=== PATIENT | male | born 1935 | race Caucasian/White ===

== ENCOUNTER 2017-08-03 19:24 | Outpatient (CLI) | payer MEDICARE, OTHER | END 2017-08-04 05:29 | disposition home or self-care (01) | LOC: SLEEP 19:24 | PROVIDERS: ATTEND Nurse Practitioner | DX: G47.33 Obstructive sleep apnea (adult) (pediatric) (principal); G47.10 Hypersomnia, unspecified; R06.83 Snoring | CPT/HCPCS: 95810 ==

== ENCOUNTER 2019-01-21 05:48 | Outpatient (CLI) | payer MEDICARE ==
[~2019-01-21] VITALS: Ht 177.8 cm; Wt 74.8 kg
[2019-01-21] MEDS ORDERED: [UNRECOGNIZED DRUG - CODE] PO (11:04)
[2019-01-21] MEDS ORDERED: SIMV20TA3 PO (11:04)
[2019-01-21] MEDS ORDERED: ZOLP10TA5 PO (11:04)
[2019-01-21] MEDS ORDERED: ASPI-586 PO (11:04)
[2019-01-21] MEDS ORDERED: MELA10CA2 PO (11:04)
[2019-01-21] MEDS ORDERED: LOSA1TAB26 PO (11:04)
[2019-01-21] MEDS ORDERED: ISRA2.5C PO (11:04)
[2019-01-21] MEDS ORDERED: MULT-178 PO (11:04)
== END 2019-01-22 15:03 | disposition home or self-care (01) ==
LOC: PREOP 05:48
PROVIDERS: ATTEND Specialist
DX: Z01.818 Encounter for other preprocedural examination (principal)

== ENCOUNTER 2019-01-23 07:02 | Day surgery (SDC) | payer MEDICARE, OTHER ==
[~2019-01-23] VITALS: Ht 177.8 cm; Wt 74.8 kg
[~2019-01-23 07:02] MED LIST: ASPI-586 PO; ISRA2.5C PO; LOSA1TAB26 PO; MELA10CA2 PO; MULT-178 PO; SIMV20TA3 PO; ZOLP10TA5 PO; [UNRECOGNIZED DRUG - CODE] PO
[2019-01-23 07:15] VITALS: BP 141/83
[2019-01-23] MEDS ORDERED: MOXIFLOXACIN OPHTH SOLN 5 MG/ML 0.3 ML SYRINGE OP ONE (07:15)
[2019-01-23] MEDS ORDERED: LIDOCAINE PF 1% 2 ML AMP IR PRN (07:15)
[2019-01-23] MEDS ORDERED: TIMOLOL MALEATE 0.5% 5 ML (TIMOPTIC) BTL OU PRN (07:15)
[2019-01-23] MEDS ORDERED: POVIDONE (BETADINE) OPHTH SOLN 5% 30 ML OP ONE (07:15)
[2019-01-23] MEDS: TETRACAINE 0.5% OPHTH SOLN 4 ML BTL (SINGLE DOSE ONLY) OU PRN ×4 (07:16→07:34)
[2019-01-23] MEDS: PHENYLEPHRINE 10% OPHTH (NEO-SYN) 5 ML BTL OU SCH ×3 (07:24→07:34)
[2019-01-23] MEDS: CYCLOPENTOLATE 1% (CYCLOGYL) 2 ML DROPS OP SCH ×3 (07:24→07:34)
[2019-01-23] MEDS ORDERED: MIDAZOLAM 2 MG/2 ML (VERSED) VIAL ONE (08:01)
--- NOTE | 2019-01-23 08:21 | Ophthalmologist Pre-Op Note ---
Pre-Operative Progress Note H&P Reviewed The H&P was reviewed, patient examined and no changes noted. Date H&P Reviewed: Jan 23, 2019 Time H&P Reviewed: 08:20 Pre-Op Dx Cataract, Left Eye BJ HARMON MD Jan 23, 2019 08:20
--- NOTE | 2019-01-23 08:41 | Ophthalmology Operative Report ---
Cataract removal/placement IOL PREOPERATIVE DIAGNOSIS: Cataract Left Eye POSTOPERATIVE DIAGNOSIS: Cataract Left Eye PROCEDURE: Cataract removal and placement of posterior chamber implant, left eye SURGEON: Vignesh Harmon ANESTHESIA: Topical with sedation COMPLICATIONS: None ESTIMATED BLOOD LOSS: Minimal DESCRIPTION OF PROCEDURE: After proper informed consent was obtained, the patient, a 83 male, was taken to the Operating Room and the left eye was anesthetized with tetracaine. The left eye was then prepped and draped in the usual manner. A wire lid speculum was placed. A paracentesis was made at the left hand position. Preservative free lidocaine was injected into the anterior chamber followed by viscoelastic. A clear corneal incision was made in the temporal position. A capsulorrhexis was preformed and the central nuclear and cortical material were removed. The posterior capsule was polished and an Angel 22.5 AU00T0 was placed into the capsular bag. The residual viscoelastic was aspirated and balanced saline solution was injected into the anterior chamber. Moxifloxacin was injected into the anterior chamber. The wound was checked and found to be water tight. The patient tolerated the procedure well without complications. VIGNESH HARMON MD Jan 23, 2019 08:41
[2019-01-23 08:53] VITALS: BP 154/91
[2019-01-23] MEDS ORDERED: acetaZOLAMIDE ER 500 MG CAP (DIAMOX SEQUELS) PO ONE (09:00)
== END 2019-01-23 08:53 | disposition home or self-care (01) ==
LOC: SDC 07:02
PROVIDERS: ATTEND Specialist
DX: H25.12 Age-related nuclear cataract, left eye (principal); I10 Essential (primary) hypertension; E78.00 Pure hypercholesterolemia, unspecified; Z79.82 Long term (current) use of aspirin; Z79.899 Other long term (current) drug therapy

== ENCOUNTER 2019-02-04 05:50 | Outpatient (CLI) | payer MEDICARE, OTHER | END 2019-02-04 11:04 | disposition home or self-care (01) | LOC: PREOP 05:50 | PROVIDERS: ATTEND Specialist | DX: Z01.818 Encounter for other preprocedural examination (principal) ==

== ENCOUNTER 2019-02-06 07:05 | Day surgery (SDC) | payer MEDICARE, OTHER ==
[~2019-02-06] VITALS: Ht 177.8 cm; Wt 74.8 kg
[2019-02-06] MEDS ORDERED: POVIDONE (BETADINE) OPHTH SOLN 5% 30 ML OP ONE (07:15)
[2019-02-06] MEDS ORDERED: MOXIFLOXACIN OPHTH SOLN 5 MG/ML 0.3 ML SYRINGE OP ONE (07:15)
[2019-02-06] MEDS ORDERED: LIDOCAINE PF 1% 2 ML AMP IR PRN (07:15)
[2019-02-06] MEDS ORDERED: TIMOLOL MALEATE 0.5% 5 ML (TIMOPTIC) BTL OU PRN (07:15)
[2019-02-06 07:17] VITALS: BP 133/78
[2019-02-06] MEDS: TETRACAINE 0.5% OPHTH SOLN 4 ML BTL (SINGLE DOSE ONLY) OU PRN ×4 (07:19→07:42)
[2019-02-06] MEDS: CYCLOPENTOLATE 1% (CYCLOGYL) 2 ML DROPS OP SCH ×3 (07:27→07:42)
[2019-02-06] MEDS: PHENYLEPHRINE 10% OPHTH (NEO-SYN) 5 ML BTL OU SCH ×3 (07:27→07:42)
[2019-02-06] MEDS ORDERED: MIDAZOLAM 2 MG/2 ML (VERSED) VIAL ONE (07:53)
--- NOTE | 2019-02-06 08:16 | Ophthalmologist Pre-Op Note ---
Pre-Operative Progress Note H&P Reviewed The H&P was reviewed, patient examined and no changes noted. Date H&P Reviewed: Feb 06, 2019 Time H&P Reviewed: 08:15 Pre-Op Dx Cataract, Right Eye BJ HARMON MD Feb 06, 2019 08:15
--- NOTE | 2019-02-06 08:37 | Ophthalmology Operative Report ---
Cataract removal/placement IOL PREOPERATIVE DIAGNOSIS: Cataract Right Eye POSTOPERATIVE DIAGNOSIS: Cataract Right Eye PROCEDURE: Cataract removal and placement of posterior chamber implant, right eye SURGEON: Vignesh Harmon ANESTHESIA: Topical with sedation COMPLICATIONS: None ESTIMATED BLOOD LOSS: Minimal DESCRIPTION OF PROCEDURE: After proper informed consent was obtained, the patient, a 83 male, was taken to the Operating Room and the right eye was anesthetized with tetracaine. The right eye was then prepped and draped in the usual manner. A wire lid speculum was placed. A paracentesis was made at the left hand position. Preservative free lidocaine was injected into the anterior chamber followed by viscoelastic. A clear corneal incision was made in the temporal position. A capsulorrhexis was preformed and the central nuclear and cortical material were removed. The posterior capsule was polished and Angel AU00T0 21.5 IOL was placed into the capsular bag. The residual viscoelastic was aspirated and balanced saline solution was injected into the anterior chamber. Moxifloxacin was injected into the anterior chamber. The wound was checked and found to be water tight. The patient tolerated the procedure well without complications. VIGNESH HARMON MD Feb 06, 2019 08:37
--- NOTE | 2019-02-06 08:37 | Anesthesia-General Post-Op ---
MAC Patient Condition Mental Status/LOC: Same as Preop Cardiovascular: Satisfactory Nausea/Vomiting: Absent Respiratory: Satisfactory Pain: Controlled Complications: Absent Post Op Complications Complications None Follow Up Care/Instructions Patient Instructions None needed. Anesthesiology Discharge Order Discharge Order Patient is doing well, no complaints, stable vital signs, no apparent adverse anesthesia problems. No complications reported per nursing. RENATO MACIEL CRNA Feb 06, 2019 08:37
[2019-02-06 08:44] VITALS: BP 142/82
[2019-02-06] MEDS ORDERED: acetaZOLAMIDE ER 500 MG CAP (DIAMOX SEQUELS) PO ONE (09:00)
== END 2019-02-06 08:44 | disposition home or self-care (01) ==
LOC: SDC 07:05
PROVIDERS: ATTEND Specialist
DX: H25.11 Age-related nuclear cataract, right eye (principal); I10 Essential (primary) hypertension; G47.33 Obstructive sleep apnea (adult) (pediatric); Z87.891 Personal history of nicotine dependence; Z79.82 Long term (current) use of aspirin; Z79.899 Other long term (current) drug therapy